=== PATIENT | female | born 1965 | race Caucasian/White ===

== ENCOUNTER 2018-05-20 21:49 | Emergency (ER) | payer BC ==
--- NOTE | 2018-05-20 22:07 | ER Document Report ---
ED General - General Chief Complaint: Syncope Stated Complaint: SYNCOPE Time Seen by Provider: 05/20/18 22:06 Primary Care Provider: JUAN ALBERTO ERVIN MD [Primary Care Provider] - 05/23/18 Notes: Patient is a pleasant 52-year-old female who presents with complaint of abdominal pain. She had sudden onset abdominal pain this evening. She says it was several hours after she ate. She did not eat anything fried or fatty. Said the pain is mostly in the upper right side of her abdomen. She still the gallbladder. Stools her appendix. She denies this ever happening before. She felt nauseous. She felt like she had to have a bowel movement as well. She try to use the bathroom at home. She had a large bowel movement but did not have any resolution of her pain. She then started to feel diaphoretic and sweaty. She then almost passed out. Ambulance was called. Paramedics arrived her systolic blood pressure was 90. When they stood her up it went down to 70. They then gave her 1 L of lactated Ringer's. After that the patient's blood pressure normalized and her pain is since resolved. She says she now feels much improved. She says she is never had anything like this happen in the past. No recent fevers or infections. No blood in her stool. Past Medical History - Social History Smoking Status: Unknown if Ever Smoked Frequency of alcohol use: None Drug Abuse: None Family History: Reviewed & Not Pertinent Patient has suicidal ideation: No Patient has homicidal ideation: No Renal/ Medical History: Denies: Hx Peritoneal Dialysis Review of Systems - Review of Systems Notes: My Normal Review Basic REVIEW OF SYSTEMS: CONSTITUTIONAL : Denies fever, chills, or sweats. Denies recent illness. EENT: Denies eye, ear, throat, or mouth pain or symptoms. Denies nasal or sinus congestion. CARDIOVASCULAR: Denies chest pain. RESPIRATORY: Feels short of breath. GASTROINTESTINAL: Abdominal pain GENITOURINARY: Denies difficulty urinating, painful urination, burning, frequency, or blood in urine. MUSCULOSKELETAL: Denies neck or back pain or joint pain or swelling. SKIN: Denies rash or skin lesions. NEUROLOGICAL: Denies altered mental status or loss of consciousness. Denies headache. Denies weakness or paralysis or loss of use of either side. Denies problems with gait or speech. Denies sensory or motor loss. ALL OTHER SYSTEMS REVIEWED AND NEGATIVE. Physical Exam - Vital signs Vitals: Temp Resp BP 97.9 F 20 121/86 H 05/20/18 21:57 05/20/18 21:57 05/20/18 21:57 - Notes Notes: General Appearance: Well nourished, alert, cooperative, no acute distress, no obvious discomfort. Well-appearing. Vitals: reviewed, See vital signs table. Head: no swelling or tenderness to the head Eyes: PERRL, EOMI, Conjuctiva clear Mouth: No decreasd moisture Throat: No tonsillar inflammation, No airway obstruction, No lymphadenopathy Neck: Supple, no neck tenderness, No thyromegaly Lungs: No wheezing, No rales, No rhonci, No accessory muscle use, good air exchange bilaterally. Heart: tachycardiac rate, Regular rythm, No murmur, no rub Abdomen: Normal BS, soft, No rigidity, no reproducible pain to palpation of the abdomen., No guarding, no rebound, no abdominal masses, no organomegaly Extremities: strength 5/5 in all extremities, good pulses in all extremities, no swelling or tenderness in the extremities, no edema. Skin: warm, dry, appropriate color, no rash Neuro: speech clear, oriented x 3, normal affect, responds appropriately to questions. Course - Re-evaluation Re-evalutation: 05/21/18 02:02 On reevaluation patient continues look very well. She continues to not have any recurrent pain in her abdomen. She looks very comfortable. Her heart rate remains just slightly tachycardic however the patient says her heart rate is always a little bit high. I was concerned with the CT scan finding of focal area of bowel wall thickening in the small bowel and proximal colon. This in conjunction with her son onset of severe pain and hypotension may be concerned that there could have been some ischemia to that segment of the the bowel. I therefore went forward with a lactic acid level which came back at 4.3. Even if the patient continues to be asymptomatic concerned somewhat with her findings and therefore I called the general surgeon, Dr. Smith and discussed the case with him. He recommends observing the patient down here and continue maintenance IV fluids and then reassess in the patient first in the morning. I have ordered a repeat lactic acid at 5 AM. Have ordered maintenance IV fluids. I have reassessed patient again she continues look great and says she feels perfectly fine. She is agreeable with plan to wait here until morning time to continue to monitor her. 05/21/18 05:50 On reevaluation patient's pain remains resolved. She says she feels great and has no concerns. Her tachycardia has resolved. Her lactic acid is normalized to 1.7. On repeat evaluation her abdomen is completely soft and nontender no matter where I push on her abdomen. I did discuss the case again with Dr. Smith, general surgeon, who says that he has no further recommendations at th is time patient be discharged home with return precautions and to follow-up this week with her primary care doctor for reevaluation. I discussed the plan with the patient and she is agreeable to it. Dictation of this chart was performed using voice recognition software; therefore, there may be some unintended grammatical errors. 05/21/18 06:24 - Vital Signs Vital signs: Temp Pulse Resp BP Pulse Ox 97.9 F 16 94/58 L 93 05/20/18 21:57 05/21/18 06:00 05/21/18 05:45 05/21/18 06:00 - Laboratory Result Diagrams: 05/20/18 21:30 05/20/18 21:30 Laboratory results interpreted by me: 05/20/18 05/21/18 21:30 01:30 BUN 21 H Glucose 131 H Lactic Acid 4.3 H - EKG Interpretation by Me Additional EKG results interpreted by me: 05/20/18 22:06 EKG is reviewed and interpreted by me. EKG shows normal sinus rhythm with a rate of [address] segment elevation or depression. No ischemic T wave inv ersions. IL interval, QRS duration, QT intervals are within normal range. No old EKG available for comparison at this time. Discharge - Discharge Clinical Impression: Near syncope Abdominal pain Qualifiers: Abdominal location: unspecified location Qualified Code(s): R10.9 - Unspecified abdominal pain Condition: Good Disposition: HOME, SELF-CARE Additional Instructions: The exact cause of your episode today with abdominal pain and almost passing out is not 100% clear. You do have some evidence of inflammation of the small bowel and the first part of the colon on CT scan. As discussed with you, this could be caused by a period of decreased blood flow to the bowel versus infection versus inflammation. We watched you for several hours in the ER. We repeated your blood work and your blood work improved as well as your symptoms remain resolved. Your case was discussed with the surgeon and he felt is is safe to discharge her home; however, we want you to have a very low threshold to return to the ER immediately if you have recurrence of pain, fevers, vomiting, or if you notice any blood in your stool. Please follow-up with your doctor in 2 days for close reevaluation. Referrals: JUAN ALBERTO ERVIN MD [Primary Care Provider] - 05/23/18
[2018-05-20 23:00] LABS: ABSOLUTE EOSINOPHILS # (AUTO) 0.1 10^3/uL (0.0-0.6); ABSOLUTE LYMPHOCYTES (AUTO) 3.3 10^3/uL (0.5-4.7); ABSOLUTE MONOCYTES (AUTO) 0.4 10^3/uL (0.1-1.4); ABSOLUTE NEUT (AUTO) 6.3 10^3/uL (1.7-8.2); BASOPHILS % (AUTO) 0.2 % (0-2); EOSINOPHILS % (AUTO) 0.9 % (0-6); HEMATOCRIT 44.9 % (36.0-47.0); HEMOGLOBIN 15.4 g/dL (12.0-15.5); LYMPHOCYTES % (AUTO) 33.2 % (13-45); MEAN CORPUSCULAR HEMOGLOBIN 30.8 pg (27.0-33.4); MEAN CORPUSCULAR HGB CONC 34.2 g/dL (32.0-36.0); MEAN CORPUSCULAR VOLUME 90 fl (80-97); MONOCYTES % (AUTO) 3.6 % (3-13); PLATELET COUNT 335 10^3/uL (150-450); RED BLOOD COUNT 4.98 10^6/uL (3.72-5.28); RED CELL DISTRIBUTION WIDTH 12.9 % (11.5-14.0); SEGMENTED NEUTROPHILS % (AUTO) 62.1 % (42-78); TOTAL CELLS COUNTED % (AUTO) 100 %; WHITE BLOOD COUNT 10.1 10^3/uL (4.0-10.5)
[2018-05-20 23:06] LABS: ALANINE AMINOTRANSFERASE 33 U/L (9-52); ALBUMIN 4.2 g/dL (3.5-5.0); ALKALINE PHOSPHATASE 58 U/L (38-126); ANION GAP 10 (5-19); ASPARTATE AMINO TRANSFERASE 25 U/L (14-36); BILIRUBIN,DIRECT 0.3 mg/dL (0.0-0.4); BILIRUBIN,TOTAL 0.4 mg/dL (0.2-1.3); BLOOD UREA NITROGEN 21 mg/dL (7-20); CARBON DIOXIDE 28 mmol/L (22-30); CHLORIDE 102 mmol/L (98-107); GLUCOSE 131 mg/dL (75-110); LIPASE 132.4 U/L (23-300); POTASSIUM 4.7 mmol/L (3.6-5.0); SODIUM 139.8 mmol/L (137-145); TOTAL PROTEIN 6.7 g/dL (6.3-8.2)
[2018-05-21] MEDS ORDERED: NORMAL SALINE 500 ML IV ONE (00:03)
--- NOTE | 2018-05-21 01:14 | RADIOLOGY REPORT (SQ) ---
EXAM DESCRIPTION: CT ABDOMEN PELVIS WITHOUT THEN WITH IV CONTRAST, CT CHEST ANGIOGRAPHY WITHOUT THEN WITH IV CONTRAST COMPLETED DATE/TME: 05/21/2018 00:02 CLINICAL HISTORY: 52 years, Female, abdominal pain, diaphoresis and near sycnope EXAM DESCRIPTION: CTA of the chest COMPARISON: None. TECHNIQUE: Axial images through the chest were performed after the administration of intravenous contrast using a pulmonary embolus protocol. MIPS were performed. This exam was performed according to our departmental dose-optimization program which includes use of Automated Exposure Control, adjustment of the mA and/or kV according to patient size and/or use of iterative reconstruction technique. FINDINGS: No saddle pulmonary embolism. Otherwise nondiagnostic evaluation for PE due to contrast bolus timing. Normal caliber aorta without dissection. No pericardial effusion. No pleural effusion. No focal lung consolidation. No pneumothorax. Patent central airway. Soft tissues are unremarkable. No acute osseous findings. No acute abnormality within the visualized upper abdomen. IMPRESSION: No central pulmonary embolism. Evaluation of the rest of the pulmonary arteries is nondiagnostic due to contrast bolus timing. Clear lungs. Normal aorta. EXAM DESCRIPTION: CT of the abdomen and pelvis with IV contrast Comparison: None TECHNIQUE: Contiguous axial CT images of the abdomen and pelvis were obtained. Sagittal and coronal reformats were reviewed. This exam was performed according to our departmental dose-optimization program, which includes automated exposure control, adjustment of the mA and/or kV according to patient size and/or use of iterative reconstruction technique. FINDINGS: Lung bases: Clear. Liver:Diffuse low-attenuation throughout the liver consistent with hepatocellular disease/fatty infiltration. No focal liver lesion seen. Gallbladder:Unremarkable. No gallstones. No gallbladder wall thickening or pericholecystic fluid. Spleen:Unremarkable Pancreas: Pancreas is unremarkable. Adrenal glands: Small nodular changes in the left adrenal gland. Mild diffuse enlargement of the right adrenal gland. Kidneys/ureters:Within normal limits Stomach/small bowel/colon: Stomach is unremarkable. There is diffuse mucosal thickening of the small bowel throughout the abdomen. No abnormal air-fluid levels. Circumferential wall thickening involving the proximal colon. Appendix: No evidence of appendicitis. Mild mesenteric congestion. Peritoneum: Small amount of pelvic fluid. Vascular structures: within normal limits Lymph nodes: No abnormal lymph nodes. Bladder:Unremarkable. Pelvic organs: No acute abnormality Bones: No acute osseous abnormality. Degenerative changes L5-S1 Soft tissues: Unremarkable.. IMPRESSION: Diffuse mucosal thickening throughout the small bowel and proximal colon. Small amount of pelvic free fluid. Findings suggestive of enteritis. No drainable fluid collections. No evidence of obstruction.
[2018-05-21] MEDS ORDERED: NORMAL SALINE 1000 ML 1,000 ML IV ONE (02:01)
[2018-05-21 06:33] VITALS: BP 111/67
--- NOTE | 2018-05-21 21:30 | EKG REPORT ---
SEVERITY:- BORDERLINE ECG - SINUS RHYTHM BORDERLINE INFERIOR Q WAVES : Confirmed by: Zoey Vu 21-May-2018 21:29:14
== END 2018-05-21 06:32 | disposition home or self-care (01) ==
LOC: ER 21:49
DX: R55 Syncope and collapse (principal); R10.9 Unspecified abdominal pain
CPT/HCPCS: 93005; 99284; 36415; 83605; 83690; 85025; 80053; 84484; 71275; 74174; 93010; J7030; J7040; 96360; 96361

== ENCOUNTER 2018-06-21 12:40 | Emergency (ER) | payer BC ==
[2018-06-21] MEDS ORDERED: FAMOTIDINE INJ/PF 20 MG/2 ML SDV IV ONE (13:49)
[2018-06-21] MEDS ORDERED: METHYLPREDNISOLONE INJ 125 MG/2 ML SDV IV ONE (13:49)
[2018-06-21] MEDS ORDERED: NORMAL SALINE 500 ML IV ONE (13:49)
[2018-06-21] MEDS ORDERED: DIPHENHYDRAMINE HCL 50 MG/ML VIAL IV ONE (13:49)
--- NOTE | 2018-06-21 16:30 | ER Document Report ---
ED General - General Chief Complaint: Facial Swelling Stated Complaint: TONGUE AND FACIAL SWELLING Time Seen by Provider: 06/21/18 13:48 Notes: Patient is noted her tongue swelling since about 11:00 this morning. Also involves her lower lip. She also has tingling and feels like she is swelling in her palms of her hands and some on her feet. Patient was also diaphoretic and noted her blood pressure was low, the lowest being 67/40 and her heart rate was 145 at that time. Patient does not have any idea what might be causing her to have this reaction. She has not had any change in her toilet articles, toothpaste, food, medications, etc. This morning, she only ate a bagel with cream cheese which she has eaten many times in the past. Patient had a very similar episode to this back in May except it was associated with epigastri c pain, as well. Patient felt very weak and felt as if she might pass out. Had a few cramps in her mid abdomen. No vomiting. No diarrhea. Curiously, patient says that both these episodes, the one in May, and the one today were preceded by a very vigorous and large bowel movement. TRAVEL OUTSIDE OF THE [place] IN LAST 30 DAYS: No - Related Data Allergies/Adverse Reactions: doxycycline [From Vibramycin] Allergy (Verified 06/21/18 12:43) Penicillins Allergy (Verified 06/21/18 12:43) Past Medical History - Social History Smoking Status: Former Smoker Frequency of alcohol use: Rare Drug Abuse: None Family History: Reviewed & Not Pertinent Patient has suicidal ideation: No Patient has homicidal ideation: No - Past Medical History Cardiac Medical History: Reports: Hx Hypercholesterolemia Endocrine Medical History: Reports: Hx Diabetes Mellitus Type 2 Past Surgical History: Reports: Hx Orthopedic Surgery - LEFT HAND, LEFT ORIF, BACK, Hx Tubal Ligation Review of Systems - Review of Systems Notes: REVIEW OF SYSTEMS: CONSTITUTIONAL : Denies fever. EENT: See HPI. CARDIOVASCULAR: Denies chest pain. RESPIRATORY: Denies cough, chest congestion, or shortness of breath. GASTROINTESTINAL: Denies abdominal pain or nausea, vomiting, or diarrhea. GENITOURINARY: Denies difficulty or painful urinating, urinary frequency, blood in urine. MUSCULOSKELETAL: Denies back or neck pain. Denies joint pain or swelling. SKIN: Denies rash or skin lesions. NEUROLOGICAL: Denies LOC or altered mental status. Denies headache. Denies sensory loss or motor deficits. ALL OTHER SYSTEMS REVIEWED AND NEGATIVE. Physical Exam - Vital signs Vitals: Temp Pulse Resp BP Pulse Ox 97.9 F 109 H 20 86/49 L 94 06/21/18 13:00 06/21/18 13:00 06/21/18 13:00 06/21/18 13:00 06/21/18 13:00 Interpretation: Normal Notes: PHYSICAL EXAMINATION: GENERAL: Well-appearing, in no acute distress. HEAD: Atraumatic, normocephalic. EYES: Pupils equal round and reactive to light, extraocular movements intact. ENT: Lower lip is very minimally edematous. Not so with the upper lip. Orally, patient says her tongue is swollen, but I cannot appreciate it, not knowing what her normal is. Denies eye, ear, nose or throat pain or other symptoms. No impingement upon her airway. Can swallow without difficulty. NECK: Normal range of motion, supple. LUNGS: Breath sounds clear and equal bilaterally. HEART: Regular rate and rhythm without murmurs. ABDOMEN: Soft, nontender. No guarding or rebound. No masses. BACK: No tenderness throughout entire back. EXTREMITIES: Normal range of motion without pain. NEUROLOGICAL: Normal speech, normal gait. Normal sensory, motor, and reflex exams. Awake, alert, and oriented x3. Cranial nerves normal. PSYCH: Normal mood, normal affect. SKIN: Warm, dry, no rashes. Course - Re-evaluation Re-evalutation: 06/21/18 17:58 Patient was given IV Solu-Medrol, Pepcid IV, Benadryl IV, and observed for several hours. Eventually, her lip swelling completely dissipated. Her tongue also felt better to the patient, although I still cannot appreciate any significant swelling or improvement in same. Says both of her hands feel like they are less swollen and no more itching. Never developed any hives or any wheezes. Puzzling as to what the source of this patient's symptoms may be in both in May as well as today. I suggested she might want to see an clean energy policy analyst for further evaluation and testing. I did provide her with Dr. Yoan Tao his name and contact information. - Vital Signs Vital signs: Temp Pulse Resp BP Pulse Ox 98.0 F 98 16 112/56 L 99 03/08/19 16:40 06/21/18 16:40 06/21/18 16:40 06/21/18 16:40 06/21/18 16:40 Discharge - Discharge Clinical Impression: Allergic reaction Condition: Stable Disposition: HOME, SELF-CARE Additional Instructions: ACUTE ALLERGIC REACTION: Your symptoms are due to an allergic reaction. Allergy can cause hives, swelling of the hands, feet, and face, hoarseness, and difficulty swallowing or breathing. It may be due to exposure to medication, animal dander, foods, infection, or insect bites. Medication is a common cause, even when prior use of this same medication caused no problems. Acute treatment may include adrenalin and antihistamines. Usually, the specific allergic agent can't be identified unless repeated episodes occur. Home treatment includes the following: (1) Stop any suspicious medications. This will be discussed with you. (2) Oral antihistamines for the next four to five days. Example, diphenhydramine (Benadryl) every four hours. (3) You may also use cimetidine (Tagamet), ranitidine (Zantac), or famotidine (Pepcid) every four hours if diphenhydramine is not controlling itching and hives. (4) Avoid aspirin until the hives completely disappear. (5) Avoid hot baths or showers until the hives are completely gone. Call the doctor if faintness, difficulty swallowing, tightness in the chest, or wheezing occurs. STEROID MEDICATION INJECTION: You have been given an injection of medicine of the cortisone/steroid class. This medication is used to control inflammation or allergy. It is often continued as a pill for a short period of time, until the acute process subsides. There are usually no side effects from short-term use of cortisone-like medications. Some persons feel an increased sense of well-being and are not sleepy at bedtime. Long-term use of cortisone medications is best avoided, unless required for a severe condition. If your condition does not remit, or relapses after the course of corticosteroid medication, you should consult your physician. STEROID MEDICATION: You have been given a medicine of the cortisone/steroid class. This medication is used to control inflammation or allergy. It is usually only given for a short period of time, until the acute process subsides. There are usually no side effects from short-term use of cortisone-like m edications. Some persons feel an increased sense of well-being and are not sleepy at bedtime. Long-term use of cortisone medications is best avoided, unless required for a severe condition. If your condition does not remit, or relapses after the course of corticosteroid medication, you should consult your physician. ACID-SUPPRESSING MEDICATION: You have a prescription for medicine which reduces the stomach's secretion of acid. Examples include Zantac, Tagament, and Pepcid. These drugs are often used to allow healing of ulcers or esophagitis. They may be needed to prevent recurrence of ulcers in some patients, or to prevent damage from acid reflux in the esophagus. Take all medication as prescribed, even after the pain is gone. Regular antacids may be added as needed if you have symptoms while taking this medicine. These medications sometimes are prescribed for allergic reactions because they have anti-histaminic effects and relieve the rash and itching of the reaction. There are usually no side effects from this medication. But, in rare cases and particularly in the elderly, serious problems can occur. Contact your doctor if there is fever, rash, hallucinations, confusion, or unusual bruising. Contact your doctor at once if you develop lightheadedness, black or bloody stool, or bloody vomitus. ANTIHISTAMINES: An antihistamine has been given and/or prescribed to control your symptoms. Antihistamines are used for many reasons, including itching, watering eyes, runny nose, allergic swelling, hives, and insect stings. Antihistamines may cause drowsiness, especially with the first dose. Do not operate machinery or drive while under the effects of the medication. Other common side effects include dry mouth and eyes. In older persons, antihistamines can occasionally cause urinary retention, constipation, and trouble focusing the eyes. Do not combine the medication with alcohol, or with any other medication without talking to your doctor. USE OF DIPHENHYDRAMINE: The use of diphenhydramine (Benadryl) has been recommended to control allergic symptoms. The 25 mg strength is available over- the-counter, as well as the elixir. This antihistamine is used for many symptoms. It's useful for itching, watering eyes and nose, allergic swelling, hives, and insect stings. The medication can be repeated four times daily. Age Elixir (12.5 mg/tsp) 25 mg pill 2-3 yr 1/2 tsp 4-8 yr 1 tsp 9-14 yr 2 tsp one tab adult 1-2 tabs Antihistamines may cause drowsiness, especially with the first dose. Do not operate machinery or drive while under the effects of the medication. Do n ot combine the medication with alcohol, or with any other medication without talking to your doctor. FOLLOW-UP CARE: If you have been referred to a physician for follow-up care, call the physicians office for an appointment as you were instructed or within the next two days. If you experience worsening or a significant change in your symptoms, notify the physician immediately or return to the Emergency Department at any time for re-evaluation. Prescriptions: Prednisone [Deltasone 10 mg Tablet] 10 mg PO ASDIR PRN #15 tablet PRN Reason: Referrals: YOAN TAO MD [NO LOCAL MD] - Follow up as needed
[2018-06-21 16:48] VITALS: BP 112/65
== END 2018-06-21 16:48 | disposition home or self-care (01) ==
LOC: ER 12:40
DX: T78.40XA Allergy, unspecified, initial encounter (principal); R22.0 Localized swelling, mass and lump, head; R20.0 Anesthesia of skin; R61 Generalized hyperhidrosis; I95.9 Hypotension, unspecified; Z87.891 Personal history of nicotine dependence; E11.9 Type 2 diabetes mellitus without complications
CPT/HCPCS: 99284; 96361; 96374; 96375; J1200; J2930; J7040; S0028

== ENCOUNTER 2018-08-19 01:30 | Emergency (ER) | payer BC ==
[2018-08-19] MEDS ORDERED: EPINEPHRINE INJ 1 MG/10 ML DISP.SYRIN ONE (01:38)
[2018-08-19] MEDS ORDERED: DEXTROSE 5%-WATER 250 ML with EPINEPHRINE/PF 1 MG IV PRN ×2 (01:59)
[2018-08-19] MEDS ORDERED: METHYLPREDNISOLONE INJ 125 MG/2 ML SDV IV ONE (02:14)
[2018-08-19] MEDS ORDERED: NORMAL SALINE 1000 ML 1,000 ML IV ONE (02:14)
--- NOTE | 2018-08-19 02:15 | ER Document Report ---
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 First episode she had was in May. Action to care for that time. At that time she felt like she had a bowel movement and had some loose stools and became red and flushed and felt unwell and her blood pressure dropped. She felt lightheaded but did not pass out. She was resuscitated. CT scan at that time did show that she had inflammation around the bowel. Lactic acid was elevated. Surgery was consulted and recommended fluids. At that time fluids were given lactic acid normalized and patient was discharged home. She has since had 2 similar episodes but did not come to the ER as she was able to wait at home and her episodes eventually improved. She said last time her lips and tongue got swollen however she was still able to breathe fine and took Benadryl and eventually symptoms resolved. She did follow-up with Dr. Saunders. She was worked up for mastocytosis and this was negative. She is scheduled to have another CT scan tomorrow to see if she still has any inflammation of her bowel and then potentially have a colonoscopy on Sunday by Dr. Lane. Patient had another episode tonight which is the worst when she is ever had. She said she intellectually is about him. Last thing she remembers is getting up to go to the bathroom. She passed out. Paramedics arrived and her blood pressure was 70 systolic. She is very diaphoretic and sweaty and looked unwell. They give her a liter of fluids and her blood pressure was still very low. Therefore placed her on nor epi drip. Her oxygen saturation was in the mid 80s and therefore they placed on nonrebreather. She was read all over. She said she was itching. She denies any tongue or lip swelling this time. No recent fevers or infections. She cannot think of any triggers. She says she did drink some oral contrast earlier in the day in anticipation of the scan tomorrow. She does not think this is triggered what happened tonight as the patient has had will contrast in the past without difficulties and also her other episodes did not occur after having any form of contrast. She denies any new medications before these episodes started. No other complaints at this time. TRAVEL OUTSIDE OF THE [place] IN LAST 30 DAYS: No - Related Data Allergies/Adverse Reactions: doxycycline [From Vibramycin] Allergy (Verified 06/21/18 12:43) Penicillins Allergy (Verified 06/21/18 12:43) Past Medical History - Social History Smoking Status: Never Smoker Frequency of alcohol use: None Drug Abuse: None Family History: Reviewed & Not Pertinent - Past Medical History Cardiac Medical History: Reports: Hx Hypercholesterolemia Endocrine Medical History: Reports: Hx Diabetes Mellitus Type 2 Renal/ Medical History: Denies: Hx Peritoneal Dialysis Past Surgical History: Reports: Hx Orthopedic Surgery - LEFT HAND, LEFT ORIF, BACK, Hx Tubal Ligation Review of Systems - Review of Systems Notes: My Normal Review Basic REVIEW OF SYSTEMS: CONSTITUTIONAL : Denies fever, chills, or sweats. Denies recent illness. EENT: Denies eye, ear, throat, or mouth pain or symptoms. Denies nasal or sinus congestion. CARDIOVASCULAR: Denies chest pain. RESPIRATORY: Denies cough, cold, or chest congestion. Denies shortness of breath, difficulty breathing, or wheezing. GASTROINTESTINAL: Abdominal cramping followed by urged to use the bathroom. GENITOURINARY: Denies difficulty urinating, painful urination, burning, frequency, or blood in urine. MUSCULOSKELETAL: Denies neck or back pain or joint pain or swelling. SKIN: Denies rash or skin lesions. NEUROLOGICAL: syncope. Denies headache. Denies weakness or paralysis or loss of use of either side. Denies problems with gait or speech. Denies sensory or motor loss. ALL OTHER SYSTEMS REVIEWED AND NEGATIVE. Physical Exam - Vital signs Vitals: Resp 18 08/19/18 01:34 - Notes Notes: General Appearance: Well nourished, alert, cooperative, no acute distress, no obvious discomfort. Well-appearing. Vitals: reviewed, See vital signs table. Head: Face is slightly swollen around the eyes. Eyes: PERRL, EOMI, Conjuctiva clear Mouth: No decreasd moisture Throat: No tonsillar inflammation, No airway obstruction, No lymphadenopathy Neck: Supple, no neck tenderness, Lungs: No wheezing, No rales, No rhonci, No accessory muscle use, good air exchange bilaterally. Heart: Slightly tachycardic rate, Regular rythm, No murmur, no rub Abdomen: Normal BS, soft, No rigidity, No abdominal tenderness, No guarding, no rebound, no abdominal masses, no organomegaly Extremities: strength 5/5 in all extremities, good pulses in all extremities, no swelling or tenderness in the extremities, no edema. Skin: warm, dry, appropriate color, it is diffusely red. Redness is blanchable. Face is slightly swollen around the eyes. Neuro: speech clear, oriented x 3, normal affect, responds appropriately to questions. Course - Re-evaluation Re-evalutation: 08/19/18 04:[address] Chilo Valenzuela agrees to accept the patient for transfer to [facility]. He excepts on behalf of Dr. Krupa Esteves - Vital Signs Vital signs: Temp Pulse Resp BP Pulse Ox 97.8 F 21 H 122/65 97 08/19/18 02:30 08/19/18 06:10 08/19/18 06:10 08/19/18 06:10 - Laboratory Result Diagrams: 08/19/18 02:05 08/19/18 02:05 Laboratory results interpreted by me: 08/19/18 08/19/18 08/19/18 02:05 02:05 02:05 WBC 18.9 H RBC 5.41 H Hgb 16.4 H Hct 50.4 H Seg Neutrophils % 79.5 H Monocytes % 2.7 L Absolute Neutrophils 15.0 H Potassium 3.5 L BUN 24 H Glucose 264 H TSH 12.70 H - EKG Interpretation by Me Additional EKG results interpreted by me: 08/19/18 02:14 EKG is reviewed and interpreted by me. EKG shows sinus tachycardia with rate of [address] segment elevation or depression. No ischemic T wave inversions. FL interval, QRS duration, QT intervals are within normal range. Old EKG for comparison is from from August 17, 2018. Procedures - Central Line Right Internal jugular Consent obtained: Yes Central line pre-insertion: Sterile PPE donned, Chloraprep applied, Sterile drapes applied Central line lumen type: Triple Anesthetic type: 1% Lidocaine mL's of anesthesia: 3 Ultrasound guided: Yes CM at insertion site: 15 Line secured with sutures: Yes Central line post-insertion: Blood return from lumens, Biopatch applied, Sutured, Sterile dressing applied, Position confirmed w/ CXR Number of attempts: 1 Complications: No Critical Care Note - Critical Care Note Total time excluding time spent on procedures (mins): 45 Comments: Critical care time for this patient not including time spent in procedures approximately 45 minutes due to management of anaphylaxis, management of epinephrine drip, management of initial hypoxemia. Discharge - Discharge Clinical Impression: Anaphylaxis Qualifiers: Encounter type: initial encounter Qualified Code(s): T78.2XXA - Anaphylactic shock, unspecified, initial encounter Syncope Qualifiers: Syncope type: unspecified Qualified Code(s): R55 - Syncope and collapse Hypotension Qualifiers: Hypotension type: unspecified hypotension type Qualified Code(s): I95.9 - Hypotension, unspecified Condition: Stable Disposition: [facility] Referrals: JUAN ALBERTO ERVIN MD [Primary Care Provider] - Follow up as needed
[2018-08-19 02:17] LABS: ABSOLUTE BASOPHILS # (AUTO) 0.1 10^3/uL (0.0-0.2); ABSOLUTE EOSINOPHILS # (AUTO) 0.1 10^3/uL (0.0-0.6); ABSOLUTE LYMPHOCYTES (AUTO) 3.1 10^3/uL (0.5-4.7); ABSOLUTE MONOCYTES (AUTO) 0.5 10^3/uL (0.1-1.4); BASOPHILS % (AUTO) 0.6 % (0-2); EOSINOPHILS % (AUTO) 0.6 % (0-6); HEMATOCRIT 50.4 % (36.0-47.0); HEMOGLOBIN 16.4 g/dL (12.0-15.5); LYMPHOCYTES % (AUTO) 16.6 % (13-45); MEAN CORPUSCULAR HEMOGLOBIN 30.4 pg (27.0-33.4); MEAN CORPUSCULAR HGB CONC 32.6 g/dL (32.0-36.0); MEAN CORPUSCULAR VOLUME 93 fl (80-97); MONOCYTES % (AUTO) 2.7 % (3-13); PLATELET COUNT 360 10^3/uL (150-450); RED BLOOD COUNT 5.41 10^6/uL (3.72-5.28); RED CELL DISTRIBUTION WIDTH 12.7 % (11.5-14.0); SEGMENTED NEUTROPHILS % (AUTO) 79.5 % (42-78); TOTAL CELLS COUNTED % (AUTO) 100 %; WHITE BLOOD COUNT 18.9 10^3/uL (4.0-10.5)
[2018-08-19 02:28] LABS: ALANINE AMINOTRANSFERASE 32 U/L (9-52); ALKALINE PHOSPHATASE 62 U/L (38-126); ANION GAP 18 (5-19); ASPARTATE AMINO TRANSFERASE 25 U/L (14-36); BILIRUBIN,DIRECT 0.4 mg/dL (0.0-0.4); BILIRUBIN,TOTAL 0.5 mg/dL (0.2-1.3); BLOOD UREA NITROGEN 24 mg/dL (7-20); CALCIUM 9.7 mg/dL (8.4-10.2); CARBON DIOXIDE 22 mmol/L (22-30); CHLORIDE 101 mmol/L (98-107); GLUCOSE 264 mg/dL (75-110); POTASSIUM 3.5 mmol/L (3.6-5.0); SODIUM 141.1 mmol/L (137-145); TOTAL PROTEIN 6.7 g/dL (6.3-8.2)
--- NOTE | 2018-08-19 02:57 | RADIOLOGY REPORT (SQ) ---
EXAM DESCRIPTION: XR CHEST 1 VIEW COMPLETED DATE/TME: 08/19/2018 02:00 CLINICAL HISTORY: 52 years, Female, syncope COMPARISON: None. NUMBER OF VIEWS: 1 TECHNIQUE: Portable chest LIMITATIONS: None. FINDINGS: Heart size is normal. Osteopenia. Lungs are clear. No pneumothorax IMPRESSION: No acute cardiopulmonary process copyright 2010 [employer]- All Rights Reserved
--- NOTE | 2018-08-19 04:10 | RADIOLOGY REPORT (SQ) ---
CLINICAL HISTORY: anaphylaxis, dyspnea COMPARISON: None. TECHNIQUE: CT ABDOMEN PELVIS WITH IV CONTRAST, CT CHEST WITH IV CONTRAST on 08/19/2018 3:00 AM CDT. MIPS reconstructions were generated. This exam was performed according to our departmental dose-optimization program, which includes automated exposure control, adjustment of the mA and/or kV according to patient size and/or use of iterative reconstruction technique. FINDINGS: Vascular: Thoracic aorta is normal in course and caliber without aneurysm or dissection. Pulmonary arteries are adequately opacified without acute or chronic filling defects. Abdominal aorta is normal in course and caliber without aneurysm. Pelvic arteries are patent without aneurysm or occlusion. The heart is normal in size. There is no pericardial effusion. Intrathoracic lymph nodes are not enlarged. There is no pleural effusion, pleural thickening or pneumothorax. Central airways are patent. There is a 2 mm right upper lobe pulmonary nodule. Abdomen: The liver is normal in appearance. There is no biliary dilatation. Gallbladder is normal in appearance. The pancreas and spleen are normal in appearance. The adrenal glands and kidneys are unremarkable. Abdominal aorta is normal in course and caliber without aneurysm. There is no free air. There is no retroperitoneal adenopathy. Pelvis: There is no bowel obstruction. Urinary bladder is unremarkable. There is no free fluid. Uterus is normal in size. Appendix is normal. Skeleton: There are no acute osseous findings. No suspicious bony lesions. IMPRESSION: No definite acute process. 2.0 mm solid pulmonary nodule within the upper lobe. If patient is low risk for malignancy, no routine follow-up imaging is recommended; if patient is high risk for malignancy, a non-contrast Chest CT at 12 months is optional. If performed and the nodule is stable at 12 months, no further follow-up is recommended. These guidelines do not apply to patients younger than 35 years, immunocompromised patients, and patients with cancer. Follow up in patients with significant comorbidities as clinically warranted. For lung cancer screening, adhere to Lung-RADS guidelines. Reference: Radiology. 2017; 284(1):228-43.
[2018-08-19] MEDS ORDERED: EPINEPHRINE INJ/PF 1 MG/1 ML AMPULE ONE (04:29)
--- NOTE | 2018-08-19 06:28 | RADIOLOGY REPORT (SQ) ---
EXAM DESCRIPTION: XR CHEST 1 VIEW COMPLETED DATE/TME: 08/19/2018 00:00 CLINICAL HISTORY: 52 years, Female, TRILUMEN PLACEMENT COMPARISON: None. FINDINGS: No focal lung consolidation. No pleural effusion. No pneumothorax. Cardiac and mediastinal silhouette is unremarkable. No acute osseous abnormality. Right IJ central line terminates near the innominate vein confluence. IMPRESSION: No focal lung consolidation. Right IJ central line terminates near the confluence of the innominate veins. No pneumothorax.
[2018-08-19 06:36] VITALS: BP 122/65
--- NOTE | 2018-08-19 06:57 | EKG REPORT ---
SEVERITY:- OTHERWISE NORMAL ECG - SINUS TACHYCARDIA BORDERLINE RIGHT AXIS DEVIATION : Confirmed by: Zoey Vu 19-Aug-2018 06:56:50
== END 2018-08-19 06:38 | disposition short-term general hospital (02) ==
LOC: ER 01:30
DX: T78.2XXA Anaphylactic shock, unspecified, initial encounter (principal); I95.9 Hypotension, unspecified; R09.02 Hypoxemia; R55 Syncope and collapse; R61 Generalized hyperhidrosis; R10.9 Unspecified abdominal pain; R00.0 Tachycardia, unspecified; E11.9 Type 2 diabetes mellitus without complications; Z88.0 Allergy status to penicillin; Z88.1 Allergy status to other antibiotic agents
CPT/HCPCS: 93005; 99291; 96375; 93010; 96365; 96366; 36415; 83735; 84443; 85025; 80053; 84484; 71045; 71260; 74177; 36556; C1751; J0171; J2930; J7060; J7030

== ENCOUNTER 2019-01-20 23:36 | Emergency (ER) | payer BC ==
--- NOTE | 2019-01-20 23:58 | ER Document Report ---
ED Allergic Reaction - General Chief Complaint: Allergic Reaction Stated Complaint: POSS ANAPHYLACTIC REACTION Time Seen by Provider: 01/20/19 23:58 Primary Care Provider: JUAN ALBERTO ERVIN MD [Primary Care Provider] - Follow up as needed Mode of Arrival: Ambulatory Information source: Patient, Relative Notes: HISTORY OF PRESENT ILLNESS: Patient is a 53-year-old female with a past medical history of mast cell activation syndrome currently taking Zyrtec, Zantac, and Atarax who presents with sudden onset abdominal cramping with watery diarrhea followed by facial f lushing. Patient reports this is how her symptoms usually begin when she has an acute crisis of her mast cell activation syndrome, although she has been much more controlled after starting medications a few months ago after being transferred to [facility] and being seen by immunology. Patient denies hives or wheezing, reports symptoms have improved after taking her Atarax. Location: Abdomen, skin flushing Onset: Prior to arrival Provocation: Unknown Quality: Aching, diarrhea, flushing Radiation: None Severity: Moderate at worst, currently mild but improving Timing: Constant Associated symptoms: Denies fevers or chills, no cough or congestion, no difficulty breathing, no wheezing REVIEW OF SYSTEMS: CONSTITUTIONAL : Denies fever or chills, no sweats. Denies recent illness. EENT: Denies eye, ear, throat, or mouth pain or symptoms. Denies nasal or sinus congestion. CARDIOVASCULAR: Denies chest pain. RESPIRATORY: Denies cough, cold, or chest congestion. Denies shortness of breath, difficulty breathing, or wheezing. GASTROINTESTINAL: As noted for abdominal pain and watery diarrhea. Denies nausea or vomiting. Denies constipation. GENITOURINARY: Denies difficulty urinating, painful urination, burning, frequency, or blood in urine. Denies vaginal bleeding, abnormal or irregular periods. MUSCULOSKELETAL: Denies neck or back pain or joint pain or swelling. SKIN: Denies rash or skin lesions. HEMATOLOGIC : Denies easy bruising or bleeding. LYMPHATIC: Denies swollen, enlarged glands. NEUROLOGICAL: Denies altered mental status or loss of consciousness. Denies headache. Denies weakness or paralysis or loss of use of either side. Denies problems with gait or speech. Denies sensory or motor loss. PSYCHIATRIC: Denies anxiety or stress or depression. All other systems reviewed and negative. PHYSICAL EXAMINATION: GENERAL: Well-appearing, well-nourished and in no acute distress. HEAD: Atraumatic, normocephalic. No scalp deformity, depression, or crepitance. EYES: Pupils are 3 mm and equal/round/reactive to light, extraocular movements intact, sclera anicteric, conjunctiva are normal. ENT: Mild facial flushing. Nares patent bilaterally, oropharynx clear without exudates or palatal petechia, no stridor. Moist mucous membranes. No tonsil hypertrophy. NECK: Normal range of motion, supple without lymphadenopathy. LUNGS: Breath sounds present, equal, and clear to auscultation bilaterally. No wheezes, rales, or rhonchi. HEART: Regular rate and rhythm without murmurs, rubs, or gallops. 2+ peripheral pulses. Normal capillary refill. ABDOMEN: Soft, nontender, nondistended. Normoactive bowel sounds. No guarding, no rebound. No masses appreciated. BACK: Normal contour, no midline tenderness. Rectal exam deferred. PELVC: Deferred. EXTREMITIES: Normal range of motion, no pitting or edema. No cyanosis. NEUROLOGICAL: No focal neurological deficits. Moves all extremities spontaneously and on command. PSYCH: Normal mood, normal affect. No suicidal thoughts/ideations. No homicidal thoughts/ideations. No hallucinations. SKIN: Warm, dry, normal turgor, no rashes or lesions noted. ASSESSMENT AND PLAN: This patient is a 53-year-old female who presents with symptoms consistent with reactivation of her mast cell syndrome, no evidence of acute anaphylaxis or severe allergic reaction. 1. Will obtain labs, observe overnight, and reassess the patient in the morning. 2. Will consult [facility] as indicated. TRAVEL OUTSIDE OF THE [place] IN LAST 30 DAYS: No - HPI Onset: Just prior to arrival Onset/Duration: Sudden Quality of pain: Achy, Cramping Severity: Moderate Pain Level: Denies Skin rash / itching: "Redness" Swelling: Face, Diffuse Associated symptoms: None Similar symptoms previously: No Recently seen / treated by doctor: No - Related Data Allergies/Adverse Reactions: barium sulfate Allergy (Verified 01/21/19 04:38) doxycycline [From Vibramycin] Allergy (Verified 01/21/19 04:38) lisinopril Allergy (Verified 01/21/19 04:38) Penicillins Allergy (Verified 01/21/19 04:38) Past Medical History - General Information source: Patient, Relative - Social History Smoking Status: Never Smoker Chew tobacco use (# tins/day): No Frequency of alcohol use: None Drug Abuse: None Lives with: Family Family History: Reviewed & Not Pertinent Patient has suicidal ideation: No Patient has homicidal ideation: No - Past Medical History Cardiac Medical History: Reports: Hx Hypercholesterolemia Pulmonary Medical History: Reports: None EENT Medical History: Reports: None Neurological Medical History: Reports: None Endocrine Medical History: Reports: Hx Diabetes Mellitus Type 2 Renal/ Medical History: Reports: None. Denies: Hx Peritoneal Dialysis Malignancy Medical History: Reports: None GI Medical History: Reports: None Musculoskeletal Medical History: Reports None Skin Medical History: Reports None Psychiatric Medical History: Reports: None Traumatic Medical History: Reports: None Infectious Medical History: Reports: None Past Surgical History: Reports: Hx Orthopedic Surgery - LEFT HAND, LEFT ORIF, BACK, Hx Tubal Ligation - Immunizations Immunizations up to date: Yes Hx Diphtheria, Pertussis, Tetanus Vaccination: Yes Review of Systems - Review of Systems Constitutional: No symptoms reported EENT: See HPI, Other - Facial flushing Cardiovascular: No symptoms reported Respiratory: No symptoms reported Gastrointestinal: See HPI, Abdominal pain, Diarrhea Genitourinary: No symptoms reported Female Genitourinary: No symptoms reported Musculoskeletal: No symptoms reported Skin: No symptoms reported Hematologic/Lymphatic: No symptoms reported Neurological/Psychological: No symptoms reported -: Yes All other systems reviewed and negative Physical Exam - Vital signs Vitals: Temp Pulse Resp BP Pulse Ox 97.2 F 106 H 16 117/69 95 01/20/19 23:42 01/20/19 23:42 01/20/19 23:42 01/20/19 23:42 01/20/19 23:42 Interpretation: Normal Course - Re-evaluation Re-evalutation: 01/21/19 05:27 Labs as requested by the patient's specialist are a send out and will not be back until at least another 4 to 5 days. Patient was told this. She reports that she has returned to her baseline and would like to be discharged, reports she will follow-up with her specialist at [facility]. Will discharge the patient home with strict return precautions and follow-up with primary care. All results were explained to and discussed with the patient, and all questions addressed and answered. The patient voices both understanding and agreeing with the plan. - Vital Signs Vital signs: Temp Pulse Resp BP Pulse Ox 97.2 F 106 H 15 112/64 93 01/20/19 23:42 01/20/19 23:42 01/21/19 04:01 01/21/19 04:01 01/21/19 04:01 Discharge - Discharge Clinical Impression: Allergic reaction Qualifiers: Encounter type: subsequent encounter Qualified Code(s): T78.40XD - Allergy, unspecified, subsequent encounter Condition: Good Disposition: HOME, SELF-CARE Instructions: Acute Allergic Reaction ([facility]) Additional Instructions: You have been evaluated in the Emergency Department for diarrhea and facial flushing related to your mast cell activation syndrome. While here, you had normal blood work and we are still waiting on your special blood work, and it is now safe to be discharged home. Please follow-up with your primary physician as instructed in one week to be rechecked. Return to the Emergency Department if you experience difficulty breathing, high fevers, general weakness, hives, itching, or any other concerning symptoms. Referrals: JUAN ALBERTO ERVIN MD [Primary Care Provider] - Follow up as needed Print Language: Vietnamese
[2019-01-21] MEDS ORDERED: EPINEPHRINE INJ/PF 1 MG/1 ML AMPULE IM ONE (01:35)
[2019-01-21 05:44] VITALS: BP 117/72
== END 2019-01-21 05:40 | disposition home or self-care (01) ==
LOC: ER 23:36
DX: T78.40XD Allergy, unspecified, subsequent encounter (principal); R10.9 Unspecified abdominal pain; R19.7 Diarrhea, unspecified; R23.2 Flushing; D89.40 Mast cell activation, unspecified; Z79.899 Other long term (current) drug therapy; E11.9 Type 2 diabetes mellitus without complications
CPT/HCPCS: 36415; 83520; 83835; 99283